=== PATIENT | female | born 1980 | race Caucasian/White ===

== ENCOUNTER 2018-05-27 17:42 | Emergency (ER) | payer OTHER ==
[~2018-05-27] VITALS: Ht 165.1 cm; Wt 88.5 kg
[~2018-05-27 17:42] MED LIST: BENTYL10 MG; CIPROFLOXACIN500 M3; HYDROCODON-ACE1 EAC7 PO; IBUPROFEN 800800 M1 PO; PEPCID AC20 M1; PERCOCET 5-3251 EACH
[2018-05-27] MEDS ORDERED: SYNTHROID25 MC1 PO (17:47)
[2018-05-27 18:06] LABS: ABSOLUTE BASOPHILS 0.1 thou/uL (0.0-0.2); ABSOLUTE EOSINOPHILS 0.4 thou/uL (0.0-0.7); ABSOLUTE LYMPHOCYTES 3.3 thou/uL (0.8-5.3); ABSOLUTE MONOCYTES 0.5 thou/uL (0.0-1.2); ABSOLUTE NEUTROPHILS 5.2 thou/uL (1.6-8.1); BASOPHILS 1.1 %; EOSINOPHILS 4.2 %; HEMATOCRIT 42.3 % (37.0-47.0); HEMOGLOBIN 14.7 gm/dL (12.0-15.0); LYMPHOCYTES 34.5 %; MCH 30.9 pg (26.0-34.0); MCHC 34.7 g/dL (28.0-37.0); MCV 88.9 fL (80.0-100.0); MONOCYTES 5.3 %; MPV 9.6 fl. (7.2-11.1); NUCLEATED RBCS 0 /100WBC; PLATELET COUNT* 193 thou/uL (150-400); POLYS 54.9 %; RBC 4.76 mil/uL (4.20-5.00); RDW-CV 12.9 % (10.5-14.5); WBC 9.5 thou/uL (4.0-11.0)
[2018-05-27 18:16] LABS: APTT 27.3 Seconds (25.0-31.3); PROTIME 9.8 Seconds (9.20-11.50)
[2018-05-27 18:23] LABS: ANION GAP 9 mmol/L (7-16); BUN 13 mg/dL (7-18); CALCIUM 8.7 mg/dL (8.5-10.1); CHLORIDE 104 mmol/L (98-107); CO2 28 mmol/L (21-32); CREATININE 0.8 mg/dL (0.6-1.3); GLUCOSE 96 mg/dL (70-99); SODIUM 141 mmol/L (136-145); TROPONIN-I LEVEL <0.06 ng/mL (<0.06)
[2018-05-27 18:27] LABS: ALBUMIN 3.7 g/dL (3.4-5.0); ALKALINE PHOSPHATASE 71 U/L (46-116); CK-MB MASS 0.9 ng/mL (<0.5-3.6); LIPASE 118 U/L (73-393); MAGNESIUM 1.9 mg/dL (1.8-2.4); NT-PRO BRAIN NAT PEPTIDE 72 pg/mL (<300); SGOT 12 U/L (15-37); SGPT 17 U/L (30-65); TOTAL BILIRUBIN 0.2 mg/dL (<0.1-1.0); TOTAL PROTEIN 7.5 g/dL (6.4-8.2)
[2018-05-27 18:52] VITALS: BP 124/81
--- NOTE | 2018-05-28 10:48 | EKG ---
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
== END 2018-05-27 18:53 | disposition home or self-care (01) ==
LOC: M.ERS 17:42
PROVIDERS: Emergency Medicine
DX: R07.89 Other chest pain (principal); R10.13 Epigastric pain; F17.210 Nicotine dependence, cigarettes, uncomplicated; Z90.710 Acquired absence of both cervix and uterus; Z98.890 Other specified postprocedural states; Z88.2 Allergy status to sulfonamides; Z88.5 Allergy status to narcotic agent

== ENCOUNTER 2018-12-29 01:36 | Inpatient (IN) | payer OTHER ==
[~2018-12-29] VITALS: Ht 165.1 cm; Wt 88.0 kg
[~2018-12-29 01:36] MED LIST changes: +SYNTHROID25 MC1 PO
[2018-12-29 01:47] VITALS: BP 130/99
[2018-12-29 02:06] LABS: ABSOLUTE BASOPHILS 0.2 thou/uL (0.0-0.2); ABSOLUTE EOSINOPHILS 0.3 thou/uL (0.0-0.7); ABSOLUTE LYMPHOCYTES 2.9 thou/uL (0.8-5.3); ABSOLUTE MONOCYTES 0.7 thou/uL (0.0-1.2); ABSOLUTE NEUTROPHILS 12.9 thou/uL (1.6-8.1); HEMATOCRIT 46.2 % (37.0-47.0); HEMOGLOBIN 15.8 gm/dL (12.0-15.0); MCH 30.7 pg (26.0-34.0); MCHC 34.3 g/dL (28.0-37.0); MCV 89.6 fL (80.0-100.0); MONOCYTES 4.1 %; MPV 9.5 fl. (7.2-11.1); NUCLEATED RBCS 0 /100WBC; PLATELET COUNT* 228 thou/uL (150-400); POLYS 75.9 %; RBC 5.15 mil/uL (4.20-5.00); RDW-CV 13.2 % (10.5-14.5)
[2018-12-29 02:23] LABS: CALCIUM 9.2 mg/dL (8.5-10.1); CREATININE 0.8 mg/dL (0.6-1.3)
[2018-12-29 02:34] LABS: ALBUMIN 4.2 g/dL (3.4-5.0); TOTAL BILIRUBIN 0.4 mg/dL (<0.1-1.0); TOTAL PROTEIN 8.4 g/dL (6.4-8.2)
[2018-12-29 03:59] LABS: URINE BILIRUBIN NEGATIVE (Negative); URINE BLOOD NEGATIVE (Negative); URINE CLARITY CLEAR; URINE COLOR YELLOW; URINE GLUCOSE-RANDOM NEGATIVE (Negative); URINE KETONES NEGATIVE (Negative); URINE LEUKOCYTES-REFLEX NEGATIVE (Negative); URINE NITRITE-REFLEX NEGATIVE (Negative); URINE PROTEIN NEGATIVE (Negative); URINE SPECIFIC GRAVITY 1.015 (1.005-1.030); URINE UROBILINOGEN 0.2 E.U./dl (0.2-1.0)
[2018-12-29 07:40] VITALS: BP 107/66
[2018-12-29 08:00] VITALS: BP 98/55
[2018-12-29 16:22] VITALS: BP 91/50
[2018-12-29 20:16] VITALS: BP 100/52
[2018-12-30 07:20] VITALS: BP 104/58
--- NOTE | 2018-12-30 11:32 | EKG ---
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
[2018-12-30 12:59] LABS: CALCIUM 7.5 mg/dL (8.5-10.1); CREATININE 0.9 mg/dL (0.6-1.3); POTASSIUM 3.8 mmol/L (3.5-5.1)
[2018-12-30 16:32] VITALS: BP 100/65
[2018-12-30 21:00] VITALS: BP 102/59
[2018-12-31 09:03] LABS: URINE BILIRUBIN NEGATIVE (Negative); URINE BLOOD NEGATIVE (Negative); URINE CLARITY CLEAR; URINE COLOR DARK YELLOW; URINE GLUCOSE-RANDOM NEGATIVE (Negative); URINE KETONES NEGATIVE (Negative); URINE LEUKOCYTES-REFLEX NEGATIVE (Negative); URINE PROTEIN TRACE (Negative); URINE SPECIFIC GRAVITY >= 1.030 (1.005-1.030); URINE UROBILINOGEN 0.2 E.U./dl (0.2-1.0)
[2018-12-31 09:04] LABS: URINE NITRITE-REFLEX POSITIVE (Negative)
[2018-12-31 09:14] LABS: BACTERIA-REFLEX 1-9 Few /HPF (None Seen); CRYSTALS None Seen /LPF (None Seen); HYALINE CASTS 4-10 Moderate /LPF (None Seen); MUCUS >6 Heavy strn/LPF (None Seen); SQUAMOUS >10 Many /LPF (0-3); URINE RBC 0-2 Rare /HPF (0-2); URINE WBC-REFLEX 0-5 Rare /HPF (0-5)
[2018-12-31 09:21] VITALS: BP 102/59
[2018-12-31] MEDS ORDERED: FLAGYL500 M1 PO (10:57)
[2018-12-31] MEDS ORDERED: CIPRO500 MG PO (10:57)
[2018-12-31 11:04] LABS: HEMATOCRIT 35.9 % (37.0-47.0); MCH 31.5 pg (26.0-34.0); MCV 90.1 fL (80.0-100.0); MPV 10.6 fl. (7.2-11.1); RBC 3.99 mil/uL (4.20-5.00); WBC 6.4 thou/uL (4.0-11.0)
[2018-12-31 11:05] LABS: HEMOGLOBIN 12.6 gm/dL (12.0-15.0)
[2018-12-31 11:07] LABS: CALCIUM 7.4 mg/dL (8.5-10.1); CREATININE 0.8 mg/dL (0.6-1.3); POTASSIUM 3.9 mmol/L (3.5-5.1)
[2018-12-31 15:43] VITALS: BP 111/68
[2018-12-31 20:00] VITALS: BP 116/70
[2019-01-01 04:12] LABS: ABSOLUTE BASOPHILS 0.1 thou/uL (0.0-0.2); ABSOLUTE EOSINOPHILS 0.3 thou/uL (0.0-0.7); ABSOLUTE LYMPHOCYTES 2.3 thou/uL (0.8-5.3); ABSOLUTE MONOCYTES 0.4 thou/uL (0.0-1.2); ABSOLUTE NEUTROPHILS 3.7 thou/uL (1.6-8.1); BASOPHILS 0.8 %; EOSINOPHILS 4.9 %; HEMATOCRIT 37.5 % (37.0-47.0); HEMOGLOBIN 12.9 gm/dL (12.0-15.0); LYMPHOCYTES 34.1 %; MCH 30.9 pg (26.0-34.0); MCHC 34.4 g/dL (28.0-37.0); MCV 89.9 fL (80.0-100.0); MONOCYTES 5.6 %; MPV 9.8 fl. (7.2-11.1); NUCLEATED RBCS 0 /100WBC; PLATELET COUNT* 168 thou/uL (150-400); POLYS 54.6 %; RBC 4.17 mil/uL (4.20-5.00); RDW-CV 12.7 % (10.5-14.5); WBC 6.8 thou/uL (4.0-11.0)
[2019-01-01 04:45] LABS: ALBUMIN 2.8 g/dL (3.4-5.0); CALCIUM 7.7 mg/dL (8.5-10.1); CREATININE 0.8 mg/dL (0.6-1.3); POTASSIUM 3.8 mmol/L (3.5-5.1); TOTAL BILIRUBIN 0.2 mg/dL (<0.1-1.0); TOTAL PROTEIN 5.7 g/dL (6.4-8.2)
[2019-01-01 07:12] VITALS: BP 124/73
[2019-01-01] MEDS ORDERED: DIFLUCAN150 M1 PO (11:04)
[2019-01-01 11:19] VITALS: BP 124/73
[2019-01-01] MEDS ORDERED: REGLAN 5 MG TAB5 MG PO (11:33)
[2019-01-01] MEDS ORDERED: PROTONIX40 M2 PO (11:34)
[2019-01-01 11:35] VITALS: BP 124/73
[2019-01-01 11:50] VITALS: BP 124/73
--- NOTE | 2019-01-01 17:06 | PATH ---
[address] [address] PATHOLOGY RPT PROCEDURE Name: SARA CRONIN Room: [address] IN .R.#: [id number] Admission: 12/29/18 Date of : 84 Discharge: 01/01/19 Report #: [id number] Path Case #: [id number] [facility] Accession Number: [id number] . 01 Material submitted: . PART A: duodenum - BIOPSY OF DUODENAL EROSIONS PART B: stomach - ANTRAL BIOPSY FOR H. PYLORI . 01 Clinical history: . Erosive gastritis, duodenitis . 02 Diagnosis: A. Biopsy of duodenal erosions: - Nonspecific active duodenitis with erosions, negative for granulomas, viral inclusions and dysplasia/adenomatous change. . B. Antral biopsy: - Mild nonspecific chronic antral gastritis, negative for H. pylori organisms, granulomas and dysplasia. . (CECILIO:curtis; 01/01/2019) . Special stain on B: H. pylori immuno MBR 01/01/2019 1327 Local . 02 Electronically signed: . Erickson Sutton MD, Pathologist NPI- [id number] . 01 Gross description: . A. Received in formalin labeled "Sara Cronin, biopsy of duodenal erosions," is a single segment of abrams soft tissue measuring 0.5 cm in maximum dimension. The specimen is entirely submitted in cassette A1. . B. Received in formalin labeled "Sara Cronin, antral biopsy for H. pylori," is a single segment of abrams soft tissue measuring 0.7 cm in maximum dimension. The specimen is entirely submitted in cassette B1. (TSD; 12/31/2018) TOB/TOB 12/31/2018 2251 Local . 02 Pathologist provided ICD-10: K29.80, K29.50 . 02 CPT . 161097, 450250, U93884 Specimen Comment: A courtesy copy of this report has been sent to [phone] Specimen Comment: [id number], [place] [address] PATHOLOGY RPT PROCEDURE Name: SARA CRONIN Room: [address] IN ..#: [id number] Admission: 12/29/18 Date of : 84 Discharge: 01/01/19 Report #: [id number] Path Case #: [id number] Specimen Comment: Report sent to ,DR LITTLE / DR MOREIRA Performed at: [address], [place], [place] [id number] MD Kwabena Gardner MD Phone: [phone] Performed at: 02 [facility] [address], [place], [place] [id number] MD Erickson Sutton MD Phone: [phone]
--- NOTE | 2019-01-04 21:42 | CON ---
[address] [address] CONSULTATION Name: JAMIE CLINE Room: [address] IN .R.#: [id number] Admission: 12/29/18 Attend Phys: Erickson Gabriel MD Discharge: 01/01/19 Date of : 84 Report #: [id number] THIS REPORT FOR: //name// CC: Erickson Steward DO DICTATED BY: Sonya Thomas [facility] DATE OF SERVICE: 12/30/2018 Please note at the time of this dictation, the patient was seen and physically examined by myself. REASON FOR CONSULTATION: Abdominal pain and nausea. HISTORY OF PRESENT ILLNESS: This is a 38-year-old female who presented to the Emergency Room with worsening 0of her abdominal pain and nausea. She states, initially her pain started Sunday afternoon. She did have bowels move normal, soft and formed. She does have a history of constipation maybe every 2-3 days, but when she does, she has a significant soft formed bowel movement with no bright red blood or melena noted. Her last BM was on Sunday. She states that she continued to have a little bit of discomfort, which worsened on Sunday, which included then nausea that started in the afternoon, which progressively got worse. She denied any fever or chills. She had no vomiting or diarrhea at that time. She denies any issues with acid reflux. She states if she eats certain foods she may have issues, but she always avoids those foods and has not had any for some time. She has not really been eating much and not had an appetite over the last couple of days prior to her coming in. She is still complaining of the abdominal discomfort, more so umbilicus into the right, but more generalized feeling. She states that at times, she will feel like she has to have a bowel movement, but unable to do so and she does have significant nausea, which is constant at this time. The patient was seen by us back in 08/2009. She did undergo a colonoscopy at that time because it showed that she had, on a bowel follow through, some thickening in the distal small bowel. However, upon examination of her colon, it was normal and the terminal ileoscopy, deep intubation was performed for about 20-25 cm and that was completely normal. It was determined at the time of uncertain significance and the patient has had no further problems after she had taken antibiotics. Due to financial reasons at that time, she never did undergo a small bowel capsule and was never seen again by our office. ALLERGIES: SULFA AND MORPHINE. MEDICATIONS FROM HOME: [place] [address] CONSULTATION Name: JAMIE CLINE Room: [address] M.R.#: [id number] Admission: 12/29/18 Attend Phys: Erickson Gabriel MD Discharge: 01/01/19 Date of : 84 Report #: [id number] PAST MEDICAL HISTORY: Hypothyroidism, ovarian cyst. She does have Raynaud's and is being worked up by her PCP for possible lupus. PAST SURGICAL HISTORY: Disk replacement, tubal ligation, right shoulder reconstruction, C-sections and hysterectomy. FAMILY HISTORY: Negative for any GI or female cancers or autoimmune disease. SOCIAL HISTORY: She is . Does smoke tobacco on a regular basis, alcohol more socially and denies any illegal drug use. REVIEW OF SYSTEMS: Twelve-point review of systems is essentially negative except what is mentioned in the HPI. PHYSICAL EXAMINATION: VITAL SIGNS: Temperature 36.7, pulse 66, respirations 16, blood pressure 104/58. HEART: Regular rate and rhythm. LUNGS: Clear. ABDOMEN: Soft, positive bowel sounds in all 4 quadrants with tenderness noted around the umbilicus and to the right side, more significant than on the left. LABORATORY DATA: Hemoglobin is 15.8, white count is 17, platelets 228. GFR is 81. LFTs are completely normal. CT of the abdomen and pelvis showed small bowel wall thickening, most prominently involving the distal terminal ileum, with mild circumferential thickening noted for 30 cm. IMPRESSION: 1. Abdominal pain. 2. Nausea. 3. Abnormal CT at the terminal ileum and 30 cm in. 4. Constipation. 5. Leukocytosis. 6. Personal history of thyroid and Raynaud's disease. PLAN: 1. EGD tomorrow. She has already had liquids this morning. 2. EGD tomorrow for her ongoing nausea to see if there is correlation why she would likely be intolerable to a prep. 3. Timing of colon, depending on when she is able to tolerate a colon prep. 4. CRP, ESR today. 5. Further recommendations to be made once Dr. Garcia sees the patient later today. [address] [address] CONSULTATION Name: JAMIE CLINE Room: M.102-P DIS IN M.R.#: [id number] Admission: 12/29/18 Attend Phys: Erickson Gabriel MD Discharge: 01/01/19 Date of : 84 Report #: [id number] Thank you for allowing us to participate in this patient's care. Please do not hesitate to call with any questions in regard to this consult. <ELECTRONICALLY SIGNED> By: Fahad Garcia DO 01/04/19 2142 1129 [id number] Garcia DO /nt
== END 2019-01-01 11:50 | disposition home or self-care (01) | DRG 372 ==
LOC: M.ERS 01:36 → M.ORTHSURG 04:55 → M.TBA-ER 04:55 → M.ORTHSURG 07:48
PROVIDERS: Emergency Medicine; Internal Medicine; Internal Medicine Gastroenterology; ADMIT Internal Medicine
PROC: 0DB68ZX Excision of Stomach, Via Natural or Artificial Opening Endoscopic, Diagnostic (ICD-10-PCS; principal; 2018-12-31)
PROC: 0DB98ZX Excision of Duodenum, Via Natural or Artificial Opening Endoscopic, Diagnostic (ICD-10-PCS; principal; 2018-12-31)
DX: A04.9 Bacterial intestinal infection, unspecified (principal); K50.919 Crohn's disease, unspecified, with unspecified complications; R65.10 Systemic inflammatory response syndrome (SIRS) of non-infectious origin without acute organ dysfunction; N39.0 Urinary tract infection, site not specified; E03.9 Hypothyroidism, unspecified; K59.00 Constipation, unspecified; D72.829 Elevated white blood cell count, unspecified; F17.210 Nicotine dependence, cigarettes, uncomplicated; E86.0 Dehydration; R31.9 Hematuria, unspecified; R91.1 Solitary pulmonary nodule; K31.9 Disease of stomach and duodenum, unspecified; Z90.710 Acquired absence of both cervix and uterus; Z88.6 Allergy status to analgesic agent; Z88.2 Allergy status to sulfonamides; Z79.899 Other long term (current) drug therapy

== ENCOUNTER 2020-10-11 08:30 | Emergency (ER) | payer OTHER ==
[~2020-10-11] VITALS: Ht 165.1 cm; Wt 90.7 kg
[~2020-10-11 08:30] MED LIST changes: +CIPRO500 MG PO; +DIFLUCAN150 M1 PO; +FLAGYL500 M1 PO; +PROTONIX40 M2 PO; +REGLAN 5 MG TAB5 MG PO
[2020-10-11 08:35] VITALS: BP 132/99
[2020-10-11] MEDS ORDERED: ADDERALL 10 MG10 MG PO (08:43)
[2020-10-11] MEDS ORDERED: CELEXA20 MG PO (08:43)
[2020-10-11] MEDS ORDERED: ULTRAM50 MG PO (08:51)
[2020-10-11] MEDS ORDERED: PERIDEX15 ML SWISH&SPIT (08:51)
[2020-10-11] MEDS ORDERED: CLINDAMYCIN HC300 MG PO (08:51)
== END 2020-10-11 09:03 | disposition home or self-care (01) ==
LOC: M.ERS 08:30
DX: K02.9 Dental caries, unspecified (principal); F90.9 Attention-deficit hyperactivity disorder, unspecified type; F32.9 Major depressive disorder, single episode, unspecified; F41.9 Anxiety disorder, unspecified; F17.210 Nicotine dependence, cigarettes, uncomplicated; Z98.51 Tubal ligation status; Z90.711 Acquired absence of uterus with remaining cervical stump; Z87.42 Personal history of other diseases of the female genital tract; Z98.890 Other specified postprocedural states; Z79.899 Other long term (current) drug therapy; Z88.5 Allergy status to narcotic agent; Z88.2 Allergy status to sulfonamides